=== PATIENT | female | born 1940 | race Caucasian/White ===

== ENCOUNTER 2017-08-16 09:56 | Emergency (ER) | payer OTHER ==
[~2017-08-16] VITALS: Ht 160 cm; Wt 75.7 kg
[~2017-08-16 09:56] MED LIST: ACT30 PO; ASPIR 8181 MG PO; ATORVASTATIN CA40 M1 PO; CARVEDILOL6.25 M1 PO; HYDRALAZINE HYD50 MG PO; LAC PO; NOR10T PO; RAMIPRIL10 M1 PO; SIMVASTATIN20 M1 PO; [UNRECOGNIZED DRUG - OTHER] PO
[2017-08-16 12:16] VITALS: BP 177/86
== END 2017-08-16 12:16 | disposition home or self-care (01) ==
LOC: ED 09:56
DX: S01.81XA Laceration without foreign body of other part of head, initial encounter (principal); I10 Essential (primary) hypertension; E11.9 Type 2 diabetes mellitus without complications; Z88.0 Allergy status to penicillin; W22.8XXA Striking against or struck by other objects, initial encounter; Y93.89 Activity, other specified; Y92.89 Other specified places as the place of occurrence of the external cause; Y99.8 Other external cause status

== ENCOUNTER 2019-10-10 16:02 | Inpatient (IN) | payer OTHER ==
[~2019-10-10] VITALS: Ht 160 cm; Wt 69.4 kg
[2019-10-10 16:02] VITALS: Ht 160 cm; Wt 69.4 kg
[2019-10-10 16:27] LABS: BASOPHIL % 0.3 % (0-2); PLATELET COUNT 202 x10^3mcL (130-400); RED CELL DISTRIBUTION WIDTH 13.4 % (11.5-14.5)
--- NOTE | 2019-10-10 16:45 | NUR ---
PT BROUGHT IN [facility] FOR CHEST PAIN WHILE AT SWAP MEET PRIOR TO ARRIVAL TO ED. PT ALSO REPORTED AN EPISODE OF DIZZINESS, SWEATING. UPON ARRIVAL PT AAOX4 MOHAWK SPEAKING. DENIES ANY CHEST PAIN. NO ACTIVE N/V/D. SKIN WARM DRY AND INTACT NON DIAPHORETIC. PT REPORTED NAUSEA AND 1 EPISODE OF VOMITING AT 2 AM AND "10 EPISODES OF DIARHEA" TODAY. PRIOR TO ARRIVAL, PT MEDICATED WITH APIRIN 324 MG AND 1 NITRO SPRAY WHICH RELIEVED CHEST PAIN PUMP OPERATOR TO ED. PT GOWNED AND IN POSITION OF COMFORT. PT ON FULL CM AND 2L 02 VIA N/C. MSE COMPLETED BY DR. CERVANTES. WILL CONTINUE TO MONITOR.
--- NOTE | 2019-10-10 16:58 | NUR ---
PT'S DAUGHTER IS AT BEDSIDE.
[2019-10-10 17:17] LABS: CALCIUM 8.4 mg/dL (8.5-10.1); CHLORIDE SERUM 103 mmol/L (98-107); CREATININE SERUM 0.9 mg/dL (0.6-1.0); GLUCOSE SERUM 169 mg/dL (74-106); POTASSIUM SERUM 3.3 mmol/L (3.5-5.1); SODIUM SERUM 140 mmol/L (136-145)
[2019-10-10 17:24] LABS: ALBUMIN 3.8 g/dL (3.4-5.0); ALKALINE PHOSPHATASE 108 U/L (46-116); ALT/SGPT 21 U/L (14-59); AST/SGOT 16 U/L (15-37); BILIRUBIN TOTAL 0.7 mg/dL (0.20-1.00)
--- NOTE | 2019-10-10 19:14 | NUR ---
REPORT GIVEN TO DUYEN RESUMING PT CARE.
[2019-10-10 19:16] LABS: T3 TOTAL 1.4 ng/mL
[2019-10-10 19:18] LABS: MAGNESIUM 1.8 mg/dL (1.8-2.4); PHOSPHOROUS 3.9 mg/dL (2.5-4.9)
[2019-10-10 19:22] LABS: CHOLESTEROL/HDL RATIO 2.2
--- NOTE | 2019-10-10 19:31 | NUR ---
CALLED TERMINAL PRESS OPERATOR. THERE IS NO NURSE ASSIGNED TO THIS PATIENT OF YET. WILL TRY AGAIN LATER
[2019-10-10 19:34] LABS: FREE T4 1.31 ng/dL (0.76-1.46); FREE THYROXINE INDEX 3.6 ug/dL (1.4-4.5); T4(THYROXINE) 10.4 ug/dL (4.7-13.3)
--- NOTE | 2019-10-10 20:34 | NUR ---
REPORT GIVEN TO BOBBI SANCHEZ TELE
[2019-10-10 21:01] VITALS: BP 136/62
--- NOTE | 2019-10-10 21:11 | NUR ---
RECEIVED PT FROM ER, PT ADMIT FOR CHEST PAIN, DEHYDRATION. PT IS A/O X4, VERBAL RESPONSIVE. LUNG SOUND CLEAR BILATERAL, NO COUGH,NO SOB. PT IS ON 2L/MIN O2 VIA NC. PO2 99%, PT IS ON TELE 23, SB, DENY ANY CHEST PAIN AT THIS MOMENT, BOWEL SOUND PRESENT ALL 4 QUADARNTS, C/O ABD PAIN AT UPPER QUADRANTS, PEDAL PULSE PRESENT BOTH FEET, NO EDEMA, IV AT LEFT HAND, NO LEAKING, NO INFILTRATION. ALL ADLS ASSIST, ALL NEED MET, CALL LIGHT IN REACH, WILL CONTINUE TO MONITOR.
--- NOTE | 2019-10-10 22:07 | NUR ---
DR. AMOS MADE AWARE PT USES CPAP AT HOME WITH SETTINGS "4 AND 10." STATED WILL ORDER.
[2019-10-10 22:30] VITALS: BP 136/62
--- NOTE | 2019-10-10 22:54 | NUR ---
REPORT GIVEN TO KHUSHI SANCHEZ. PT RESTING IN BED WITH CPAP IN PLACE- 8, 30% FIO2. BREATHING EVEN/UNLABORED. CALL LIGHT WITHIN REACH, BED AT LOWEST POSITION.
--- NOTE | 2019-10-10 22:55 | NUR ---
REPORT RECEIVED FROM ROSALIO SANCHEZ FOR CONTINUITY OF CARE. PT ALERT AND ORIENTED. IV ACCESS AT THE LEFT HAND INTACT AND PATENT WITH IVF NS INFUSING AT 70ML/HR ORDERED TOLERATING WELL. CALL LIGHT WITHIN REACH.
--- NOTE | 2019-10-11 | NUR ---
CONTINUES ON ATB IVPB , NO ADVERSE REACTION NOTED. KEPT CLEAN AND DRY.
--- NOTE | 2019-10-11 | NUR ---
PT REFSUED CPAP , RT MADE AWARE. PLACED ON 02 AT 2L/NC BY RT. KEPT DRY AND COMFORTABLE.
--- NOTE | 2019-10-11 03:12 | NUR ---
EYES CLOKLSED, NO FACIAL GRIMACING NOTED. RESPIRATION EVEN AND UNLABORED.
[2019-10-11 05:40] VITALS: BP 119/69
--- NOTE | 2019-10-11 06:00 | NUR ---
BLOOD [id number]=[id number], NO HRI COVERAGE. NO S/S OF GLYCEMIC REACTION NOTED. CONTINUES ON IVF NS AT 70ML/H VIA PERIPHERAL LINE AT THE LEFT HAND TOLERATING WELL. ALL NEEDS ATTENDED.
[2019-10-11 06:23] LABS: BASOPHIL % 0.2 % (0-2); PLATELET COUNT 190 x10^3mcL (130-400); RED CELL DISTRIBUTION WIDTH 13.7 % (11.5-14.5)
[2019-10-11 06:28] LABS: CARBON DIOXIDE 25.4 mmol/L (21-32); CHLORIDE SERUM 107 mmol/L (98-107); CREATININE SERUM 0.7 mg/dL (0.6-1.0); GLUCOSE SERUM 116 mg/dL (74-106); PHOSPHOROUS 3.5 mg/dL (2.5-4.9); POTASSIUM SERUM 3.7 mmol/L (3.5-5.1); SODIUM SERUM 140 mmol/L (136-145)
--- NOTE | 2019-10-11 07:05 | NUR ---
RECIEVED PT FROM NIGHT NURSE. PT IS LAYING DOWN IN BED WITH HOB UP. PT LOOKS TO BE IN NO ACUTE DISTRESS AT THIS TIME AND DENIES ANY PAIN. RESPIRATIONS EVEN AND UNLABORED ON ROOM AIR. IV SITE PATENT WITH NO SIGNS OF ERYTHEMA OR SWELLING WITH IV FLUIDS INFUSING. TELE MONITOR PRESENT. CALL LIGHT WITHIN REACH. WILL CONTINUE TO MONITOR.
[2019-10-11 07:58] VITALS: BP 126/60
[2019-10-11 11:35] VITALS: BP 129/56
--- NOTE | 2019-10-11 13:46 | NUR ---
PT IS LAYING DOWN IN BED WITH HOB UP. PT LOOKS TO BE IN NO ACUTE DISTRESS AT THIS TIME AND DENIES ANY PAIN. RESPRIATIONS EVEN AND UNLABORED ON ROOM AIR. IV SITE PATENT WITH NO SIGNS OF ERYTHEMA OR SWELLING WITH IV FLUIDS INFUSING. CALL LIGHT WITHIN REACH. WILL CONTINUE TO MONITOR.
[2019-10-11 16:24] VITALS: BP 121/55
--- NOTE | 2019-10-11 16:45 | NUR ---
INFORMED DR. MINER OF PT REQUEST TO HAVE MEDICATION FOR DIARRHEA.
--- NOTE | 2019-10-11 16:50 | NUR ---
PT TAKEN DOWN FOR CT VIA WHEELCHAIR.
--- NOTE | 2019-10-11 18:36 | NUR ---
PT IS LAYING DOWN IN BED WITH HOB UP. PT LOOKS TO BE IN NO ACUTE DISTRESS AT THIS TIME AND DENIES ANY PAIN. IV SITE PATENT WITH NO SIGNS OF ERYTHEMA OR SWELLING WITH IV FLUIDS INFUSING. RESPIRATIONS EVEN AND UNLABORED ON ROOM AIR. PT CONTINUING TO HAVE EPISODES OF DIARRHEA. CALL LIGHT WITHIN REACH. BED IN LOWEST POSITION, WILL ENDORSE TO ONCOMING SHIFT.
[2019-10-11 19:47] VITALS: BP 138/54
--- NOTE | 2019-10-11 20:19 | NUR ---
RECEIVED PT IN BED C/O MULTIPLE LOOSE STOOL ,ABD SOFT , NON TENDER TO TOUCH , BS HYPERACTIVE X4. PIV INTACT INFUSING WELL , TELE NUMBER 23 SHOWS NSR HR 60 PIV INTACT INFUSING WELL , CALL LIGHT WITHIN PT'S REACH , WILL CO N'T TO MONITOR AND ASSIST PT WITH CARE .
[2019-10-12 05:12] VITALS: BP 134/56
--- NOTE | 2019-10-12 06:16 | NUR ---
NO CHANGES OF CONDITION NOTED, ALL DUE MEDS GIVEN NO REACTION NOTED . PT DENY LOOSE STOOL SINCE MIDNIGHT, PIV INTACT INFUSING WELL , TELE NSR
[2019-10-12 06:18] LABS: BASOPHIL % 0.5 % (0-2); PLATELET COUNT 196 x10^3mcL (130-400); RED CELL DISTRIBUTION WIDTH 13.8 % (11.5-14.5)
[2019-10-12 06:38] LABS: CALCIUM 8.2 mg/dL (8.5-10.1); CARBON DIOXIDE 25.5 mmol/L (21-32); CHLORIDE SERUM 110 mmol/L (98-107); CREATININE SERUM 0.6 mg/dL (0.6-1.0); GLUCOSE SERUM 99 mg/dL (74-106); MAGNESIUM 2.1 mg/dL (1.8-2.4); PHOSPHOROUS 3.4 mg/dL (2.5-4.9); SODIUM SERUM 143 mmol/L (136-145)
--- NOTE | 2019-10-12 07:30 | NUR ---
RECEIVED PAIENT IN BED, AWAKE, ALERT AND ORIENTED. REFUSED IVF WANTS TO BE HEPLOCKED ONLY. DENIES ANY N/V/D OR ABD PAIN. AMBULATES TO THE BATHROOM, TOLERATES WELL. RESP EVEN AND UNLABORED, LUNGS CLEAR. NO ACUTE DISTRESS NOTED. TELE 23 NSR.
[2019-10-12 07:49] VITALS: BP 155/59
[2019-10-12 11:32] VITALS: BP 149/60
--- NOTE | 2019-10-12 15:15 | NUR ---
PATIENT'S PLAN OF CARE WAS DISCUSSED AND REVIEWED WITH BOARDING MACHINE OPERATOR:ALAN OHARA. I HAVE REVIEWED THE DATA COLLECTION BY BOARDING MACHINE OPERATOR (NAME):ALAN OHARA. ENTERED ON (DATE/TIME):10/12/19. I CONCUR WITH THE DATA AND ANY EXCEPTIONS OR COMMENTS ARE LISTED BELOW:
--- NOTE | 2019-10-12 15:57 | NUR ---
PATIENT READY FOR D/C. HL AND TELE DC'D. DISCAHRGE INSTRUCTIONS GIVEN. EDUCATION PROVIDED. PERSONAL BELONGINGS LIST SIGNED. CONDITON APPEARS STABLE.
== END 2019-10-12 15:58 | disposition home or self-care (01) | DRG 391 ==
LOC: ED 16:02 → DU 17:37
PROVIDERS: ADMIT Internal Medicine
DX: A08.4 Viral intestinal infection, unspecified (principal); N17.0 Acute kidney failure with tubular necrosis; E86.0 Dehydration; R55 Syncope and collapse; E87.6 Hypokalemia; E11.65 Type 2 diabetes mellitus with hyperglycemia; I11.9 Hypertensive heart disease without heart failure; I25.10 Atherosclerotic heart disease of native coronary artery without angina pectoris; E78.5 Hyperlipidemia, unspecified; Z79.82 Long term (current) use of aspirin; Z68.26 Body mass index [BMI] 26.0-26.9, adult; Z79.84 Long term (current) use of oral hypoglycemic drugs
CPT/HCPCS: 82962; 83880; 84439; 87046; 87046-59; 97116-GP; C9113; G0378; J7030; J7620; Q0092

== ENCOUNTER 2019-12-03 15:48 | Emergency (ER) | payer OTHER ==
[~2019-12-03] VITALS: Ht 157.5 cm; Wt 81.6 kg
[2019-12-03 15:54] VITALS: Ht 157.5 cm; Wt 81.6 kg
[2019-12-03 17:37] LABS: microscopic required? NO
[2019-12-03 17:46] LABS: UA SPECIFIC GRAVITY 1.025 (1.005-1.035); urine erythrocyte NEGATIVE (NEGATIVE)
[2019-12-03 18:05] LABS: AMPHETAMINE QUAL UR NONE DETECTED (See below)
[2019-12-03 18:05] LABS: BASOPHIL % 0.5 % (0-2); PLATELET COUNT 224 x10^3mcL (130-400); RED CELL DISTRIBUTION WIDTH 13.9 % (11.5-14.5)
[2019-12-03 18:25] LABS: CALCIUM 9.5 mg/dL (8.5-10.1); CARBON DIOXIDE 28.9 mmol/L (21-32); CHLORIDE SERUM 106 mmol/L (98-107); CREATININE SERUM 0.6 mg/dL (0.6-1.0); GLUCOSE SERUM 98 mg/dL (74-106); POTASSIUM SERUM 4.3 mmol/L (3.5-5.1); SODIUM SERUM 143 mmol/L (136-145)
[2019-12-03 18:35] LABS: ALBUMIN 3.9 g/dL (3.4-5.0); ALKALINE PHOSPHATASE 104 U/L (46-116); ALT/SGPT 21 U/L (14-59); AST/SGOT 20 U/L (15-37); BILIRUBIN TOTAL 0.3 mg/dL (0.20-1.00); CHOLESTEROL 173 mg/dL (<200); HDL CHOLESTEROL 89 mg/dL (40-60); LIPASE 180 IU/L (73-393); MAGNESIUM 2.3 mg/dL (1.8-2.4); T4(THYROXINE) 9.7 ug/dL (4.7-13.3); TOTAL PROTEIN, SERUM 7.5 g/dL (6.4-8.2)
[2019-12-03 21:10] VITALS: BP 135/50
== END 2019-12-03 20:00 | disposition home or self-care (01) ==
LOC: ED 15:48
PROVIDERS: Emergency Medicine
DX: E11.649 Type 2 diabetes mellitus with hypoglycemia without coma (principal); G93.41 Metabolic encephalopathy; R51 Headache; E78.00 Pure hypercholesterolemia, unspecified; I10 Essential (primary) hypertension; Z98.51 Tubal ligation status; Z88.0 Allergy status to penicillin
CPT/HCPCS: 36415; 82962; 83880; G0480